=== PATIENT | male | born 1935 | race Caucasian/White ===

== ENCOUNTER 2018-01-07 11:42 | Observation (INO) ==
[2018-01-07 12:12] LABS: Basophils # 0.1 K/mcL (0.0-0.2); Basophils % 0.6 %; Eosinophils # 0.5 K/mcL (0.0-0.6); Eosinophils % 6.4 %; Hematocrit 39.9 % (37.5-50.1); Immature Granulocytes % 0.4 % (0-4); Lymphocytes # 2.3 K/mcL (0.6-4.6); Lymphocytes % 29.6 %; Mean Corpuscular HGB Conc 35.1 g/dL (31.6-35.5); Mean Corpuscular Hemoglobin 31.3 pg (28.0-33.3); Mean Corpuscular Volume 89.3 fL (83.0-100.0); Mean Platelet Volume 10.5 fL (9.4-12.4); Monocytes # 0.6 K/mcL (0.0-1.3); Monocytes % 8.3 %; Neutrophils # 4.2 K/mcL (1.6-8.9); Platelet Count 177 K/mcL (140-400); Red Blood Count 4.47 M/mcL (4.19-5.50); Red Cell Distribution Width 12.9 % (11.5-14.5); Segmented Neutrophils % 54.7 %
[2018-01-07 12:39] LABS: Troponin I < 0.03 ng/mL (< 0.04)
[2018-01-07 12:40] LABS: BUN/Creatinine Ratio 14 (6-26); Blood Urea Nitrogen 13 mg/dL (8-23); Calcium 8.9 mg/dL (8.6-10.3); Carbon Dioxide 24 mEq/L (23-29); Chloride 106 mEq/L (98-107); Glucose 185 mg/dL (70-105); Osmolality,Calculated 293 (280-300); Potassium 3.9 mEq/L (3.5-5.1); Sodium 139 mEq/L (136-145); eGFR For African Americans > 60 (> 60); eGFR For Non-African Americans > 60 (> 60)
[2018-01-07] MEDS ORDERED: Aspirin 325 MG TABLET PO ONE (13:31)
[2018-01-07] MEDS ORDERED: Nitroglycerin 0.4 MG TAB.SUBL SL PRN (13:37)
--- NOTE | 2018-01-07 13:42 | Emergency Department Note ---
Disposition Clinical Impression: Chest pain Qualifiers: Chest pain type: unspecified Qualified Code(s): R07.9 - Chest pain, unspecified Disposition: Admitted As Inpatient Condition: Good Referrals: Humberto Penn Jr, MD [Primary Care Provider] - Forms: ED Satisfaction Letter Time of Disposition: 13:43 General Adult HPI - General Chief complaint: ED Chest Pain Stated complaint: CP X2 Days Time Seen by Provider: 01/07/18 12:53 Source: patient Limitations: no limitations Nursing Notes Reviewed: Yes Vital Signs Reviewed: Yes - History of Present Illness HPI Narrative: 82 year old male presntes to the Ed with complanits of chest pain that is left sided without radiatoin and is associated iwth exertional dyspnea. PAtient has multiple risk factors for ACS including HTn, hyperlipidemia, diabetes, and family history. He does not smoke. PAtinet states that it was worse last night and today it is a 4 but persistant. PAtinet denies fevers, cough, cold, congestion, nausea, or vomiting. PAtinet dnenies history of hemopytosos or DVT/ PE. PAtinet denies preivous cardiac evlaaution. Patiet described the pain as pressure and sharp, not reproducible Pain Scale: 8 - Related Data Home Medications Medication Instructions Recorded Confirmed Amlodipine Besylate 5 mg PO DAILY 01/05/18 01/07/18 Aspirin [Lo-Dose Aspirin EC] 81 mg PO DAILY 01/05/18 01/07/18 Doxepin [Sinequan] 25 mg PO BID 01/05/18 01/07/18 Furosemide [Lasix] 20 mg PO Q3-4D PRN 01/05/18 01/07/18 LORazepam [Ativan] 1 mg PO BID 01/05/18 01/07/18 Meclizine HCl [Bonine] 25 mg PO TID PRN 01/05/18 01/07/18 Metoprolol [Lopressor] 25 mg PO BID 01/05/18 01/07/18 Nortriptyline [Pamelor] 25 mg PO DAILY 01/05/18 01/07/18 Ondansetron [Zofran ODT] 8 mg SL ONCE 01/05/18 01/07/18 Pantoprazole Sodium [Protonix] 40 mg PO DAILY 01/05/18 01/07/18 Simvastatin [Zocor] 20 mg PO HS 01/05/18 01/07/18 Tamsulosin HCl [Flomax] 0.4 mg PO DAILY 01/05/18 01/07/18 Allergies Allergy/AdvReac Type Severity Reaction Status Date / Time acetaminophen [From Tylenol] Allergy Difficulty Verified 01/07/18 11:48 Breathing cephalexin Allergy Rash Verified 01/07/18 11:48 iodine Allergy Rash Verified 01/07/18 11:48 lisinopril Allergy Rash Verified 01/07/18 11:48 Penicillins Allergy Rash Verified 01/07/18 11:48 amitriptyline [From Elavil] AdvReac Numbness Verified 01/07/18 11:48 Constitutional: Denies: fever, chills, weakness, weight change Eyes: Denies: eye pain, eye discharge, vision change ENT ED: Denies: ear pain, throat pain, dental pain, hearing loss, epistaxis, congestion, dysphagia Cardiovascular: Reports: chest pain, dyspnea on exertion. Denies: palpitations , edema, syncope Respiratory: Denies: cough, dyspnea, wheezes, hemoptysis, stridor Gastrointestinal: Denies: abdominal pain, nausea, vomiting, diarrhea, constipation, hematemesis, melena, hematochezia Genitourinary: Denies: urgency, dysuria, frequency, hematuria Musculoskeletal: Denies: back pain, neck pain, arthralgia, myalgia Integumentary: Denies: rash, abrasion, lesions Neurological: Denies: headache, weakness, numbness, paresthesias, confusion, abnormal gait, vertigo Psychiatric: Denies: anxiety, depression, suicidal thoughts, homicidal thoughts , auditory hallucinations, visual hallucinations Endocrine: Denies: fatigue Hematological/Lymphatic: Denies: easy bleeding, easy bruising Allergic/Immunologic: Denies: facial swelling, urticaria Past Medical History - Past Medical History Medical history: Reports: hyperlipidemia, hypertension, other Surgical history: Reports: cholecystectomy, orthopedic, other (Left elbow, right ankle) Psychiatric history: Reports: anxiety - Social History Smoking Status: Never smoker Smokeless Tobacco Status: No Alcohol use: Reports: none Drug use: Reports: none Physical Exam - General Limitations: no limitations General appearance: alert, in no apparent distress - Head Head exam: atraumatic, normocephalic, normal inspection - Eye Eye exam: Present: normal appearance, PERRL, EOMI - Expanded Eye Exam Pupils: Left: reactive - ENT ENT exam: normal exam, normal oropharynx, mucous membranes moist - Expanded ENT Exam External ear exam: Present: normal external inspection Mouth exam: Present: normal external inspection Teeth exam: Present: normal inspection Throat exam: Present: normal inspection - Neck Neck exam: Present: normal inspection, full ROM, trachea midline - Chest Chest inspection: Present: normal inspection, symmetric chest wall rise - Respiratory Respiratory exam: Present: normal lung sounds bilaterally - Cardiovascular Cardiovascular exam: Present: regular rate, normal rhythm, normal heart sounds - Abdominal Exam Abdominal exam: Present: soft, Non-Tender. Absent: tenderness, distention, guarding, rebound, rigidity - Extremities Exam Extremities exam: Present: normal inspection, full ROM. Absent: tenderness, pedal edema - Expanded Upper Extremity Exam Shoulder exam: Present: normal inspection, full ROM Arm exam: Present: normal inspection, full ROM Elbow exam: Present: normal inspection, full ROM Forearm/Wrist exam: Present: normal inspection, full ROM Hand exam: Present: normal inspection, full ROM Vascular exam: Normal: capillary refill, radial pulse - Expanded Lower Extremity Exam Hip/Pelvis exam: Present: normal inspection, full ROM Upper leg exam: Present: normal inspection, full ROM Knee exam: Present: normal inspection, full ROM Lower leg exam: Present: normal inspection, full ROM Ankle exam: Present: normal inspection, full ROM Foot/toe exam: Present: normal inspection, full ROM Neurovascular/Tendon exam: Absent: motor deficit, sensory deficit, tendon deficit - Back Exam Back exam: Present: normal inspection, full ROM. Absent: tenderness - Neurological Exam Neurological exam: Present: alert, oriented X3 - Expanded Neurological Exam Patient oriented to: Present: person, place, time Coma Scale Eye Opening: Spontaneous Coma Scale Motor Response: Obeys Commands Coma Scale Verbal Response: Oriented Coma Scale Total: 15 - Psychiatric Psychiatric exam: Present: normal affect, normal mood - Skin Skin exam: Present: warm, dry, intact, normal color Course Course Narrative: we will do cardiopulmonary workup, treat with ASA and nitro and then admit to medicine. troponin is negative, and there are no new ischemic changes on ekg. patiet is agreeable to admission. - Reevaluation(s) Reevaluation #1: updated patinet and he is agreeable to plan. Time: 14:23 - Consultations Consultation #1: discussed case with Dr. Webster and she accepts patient for admission Time: 14:23 Vital Signs Temperature 98.3 F 01/07/18 11:43 Pulse Rate 78 01/07/18 11:43 Respiratory Rate 18 01/07/18 11:43 Blood Pressure 160/84 01/07/18 11:43 O2 Sat by Pulse Oximetry 96 01/07/18 11:43 Temperature 98.3 F 01/07/18 11:43 Pulse Rate 67 01/07/18 13:45 Respiratory Rate 20 01/07/18 13:45 Blood Pressure 152/85 01/07/18 13:45 O2 Sat by Pulse Oximetry 98 01/07/18 13:45 Oxygen Delivery Oxygen Delivery Room Air Medical Decision Making - Medical Records Medical records reviewed: Yes I reviewed the patient's medical records. - Lab Data Lab results reviewed: Yes I reviewed the patient's lab results. Result diagrams: 01/07/18 11:59 01/07/18 11:59 Lab Results 01/07/18 01/07/18 Range/Units 11:59 11:59 WBC 7.7 (4.3-11.1) K/mcL RBC 4.47 (4.19-5.50) M/mcL Hgb 14.0 (12.9-16.9) g/dL Hct 39.9 (37.5-50.1) % MCV 89.3 (83.0-100.0) fL MCH 31.3 (28.0-33.3) pg MCHC 35.1 (31.6-35.5) g/dL RDW 12.9 (11.5-14.5) % Plt Count 177 (140-400) K/mcL MPV 10.5 (9.4-12.4) fL Immature Gran % 0.4 (0-4) % Seg Neutrophils % 54.7 % Lymphocytes % 29.6 % Monocytes % 8.3 % Eosinophils % 6.4 % Basophils % 0.6 % Neutrophils # 4.2 (1.6-8.9) K/mcL Lymphocytes # 2.3 (0.6-4.6) K/mcL Monocytes # 0.6 (0.0-1.3) K/mcL Eosinophils # 0.5 (0.0-0.6) K/mcL Basophils # 0.1 (0.0-0.2) K/mcL Sodium 139 (136-145) mEq/L Potassium 3.9 (3.5-5.1) mEq/L Chloride 106 (98-107) mEq/L Carbon Dioxide 24 (23-29) mEq/L BUN 13 (8-23) mg/dL Creatinine 0.90 (0.70-1.30) mg/dL Est GFR ( Amer) > 60 (> 60) Est GFR (Non-Af Amer) > 60 (> 60) BUN/Creatinine Ratio 14 (6-26) Glucose 185 H (70-105) mg/dL Calculated Osmolality 293 (280-300) Calcium 8.9 (8.6-10.3) mg/dL Troponin I < 0.03 (< 0.04) ng/mL - Radiology Data Radiology results reviewed: Yes I reviewed the patient's radiology results. - EKG Data EKG #1 EKG attestation: Yes I reviewed and interpreted this EKG. EKG results narrative: NSR with rate of 66. NO STEMI. normal intervla.s no change from 05/27/17. 1151
--- NOTE | 2018-01-07 14:57 | Electrocardiograph Report ---
[facility] Test Date: 2018-01-07 Pat Name: Luke Crockett Department: 104 Room: Gender: M [employer]: : 1935 Requested By: [id number] Order Number: [id number] Reading MD: Humberto Penn Measurements Intervals [place] Rate: 66 P: 35 UT: 136 QRS: 35 QRSD: 97 T: 33 QT: 357 QTc: 371 Interpretive Statements SINUS RHYTHM wnl Electronically Signed On 01-07-2018 14:56:03 EDT by Humberto Penn
[2018-01-07] MEDS ORDERED: Furosemide 20 MG TABLET PO PRN (17:17)
[2018-01-07] MEDS ORDERED: Ondansetron ODT 4 MG TAB.RAPDIS SL SCH (17:30)
[2018-01-07] MEDS: *HR* LORazepam 1 MG TABLET PO SCH (20:29)
--- NOTE | 2018-01-07 22:25 | Internal Med History&Physical ---
Date of Encounter: 01/07/18 Time of Encounter: 22:25 Internal Medicine - H&P: HPI Chief complaint: CP History of present illness: Mr. Crockett is 82 year old male with PMH of HTN, hyperlipidemia and family history of CAD who presntes to the Ed with complanits of persistent sharp chest pain that is left sided without radiatoin and is associated with exertional dyspnea. patient denies fevers, cough, cold, congestion, nausea, or vomiting. Patient denies previous cardiac evaluation. Patient described the pain as pressure and sharp, not reproducible, He was evaluated by ER staff and his troponin and ECG was with no abnormalities, he was admitted for further evaluation. Past Med Surg Social Fam HX - Past Medical History Medical history: hyperlipidemia, hypertension, other Additional medical history: tachycardia Psychiatric history: anxiety - Past Surgical History Surgical History: cholecystectomy, orthopedic, other - Social History Smoking Status: Never smoker Smokeless Tobacco Status: No Alcohol use: none Drug use: none Internal Medicine - H&P: Meds Amlodipine Besylate 5 mg PO DAILY 01/05/18 [History] Aspirin [Lo-Dose Aspirin EC] 81 mg PO DAILY 01/05/18 [History] Doxepin [Sinequan] 25 mg PO BID 01/05/18 [History] Furosemide [Lasix] 20 mg PO Q3-4D PRN 01/05/18 [History] LORazepam [Ativan] 1 mg PO BID 01/05/18 [History] Meclizine HCl [Bonine] 25 mg PO TID PRN 01/05/18 [History] Metoprolol [Lopressor] 25 mg PO BID 01/05/18 [History] Nortriptyline [Pamelor] 25 mg PO DAILY 01/05/18 [History] Ondansetron [Zofran ODT] 8 mg SL ONCE 01/05/18 [History] Pantoprazole Sodium [Protonix] 40 mg PO DAILY 01/05/18 [History] Simvastatin [Zocor] 20 mg PO HS 01/05/18 [History] Tamsulosin HCl [Flomax] 0.4 mg PO DAILY 01/05/18 [History] 3 Allergy/AdvReac Type Severity Reaction Status Date / Time acetaminophen [From Tylenol] Allergy Difficulty Verified 01/07/18 11:48 Breathing cephalexin Allergy Rash Verified 01/07/18 11:48 iodine Allergy Rash Verified 01/07/18 11:48 lisinopril Allergy Rash Verified 01/07/18 11:48 Penicillins Allergy Rash Verified 01/07/18 11:48 amitriptyline [From Elavil] AdvReac Numbness Verified 01/07/18 11:48 All Systems PM: A 10-system review of systems was performed and is negative for pertinent findings except as documented above in the HPI. - Constitutional Constitutional: no chills, no fever(s), no night sweats - Cardiovascular Cardiovascular ROS IM: chest pain, dyspnea on exertion, no diaphoresis, no dyspnea, no lightheadedness, no palpitations, no syncope - Respiratory Respiratory: no cough, no dyspnea, no wheezing, no excessive phlegm production - Gastrointestinal Gastrointestinal: diarrhea, no abdominal pain, no hematemesis, no hematochezia, no melena, no nausea, no vomiting - Neurological Neurological ROS: no confusion, no convulsions, no focal weakness, no numbness, no tingling, no tremor(s) - Constitutional Vitals: Temp Pulse Resp BP Pulse Ox 98.0 F 62 15 143/71 94 01/07/18 18:41 01/07/18 18:41 01/07/18 18:41 01/07/18 18:41 01/07/18 18:41 General appearance: Present: A&O X 3 - Head Head exam: Present: atraumatic, normocephalic - Neck Neck exam general surgery: Present: supple, trachea midline. Absent: lymphadenopathy - Respiratory Respiratory exam: Present: CTAB. Absent: accessory muscle use, rales, rhonchi, wheezes - Cardiovascular Cardiovascular exam: Present: RRR, +S1, +S2. Absent: diastolic murmur, gallop, rubs, systolic murmur - Neurological Exam Neurological exam: Present: CN II-XII intact, oriented X3, no focal deficits. Absent: pronater drift, facial droop, speech deficit Internal Med - H&P Results - Labs CBC & Chem 7: 01/07/18 11:59 01/07/18 11:59 - Assessment and plan (1) Chest pain Current Visit: Yes Status: Acute Assessment and plan: ASSESSMENT: - Chest pain DD *CAD *Muskuloskeletal CP - myofascial strain, costochondritis *GERD *Esophageal spasm PLAN: - cardiac enzymes x 2 q 8 hr - EKG now and in AM - ASA - O2 by NC to keep SpO2 greater than 92% - UA - Urine toxic screen - CBCD, BMP in AM - Fasting lipids - Tylenol 650 mg PO q 4-6 hr PRN headache - Home meds (check list) - Heparin 5000 U SQ BID - 2D Echo - Cardiology consult Qualifiers: Chest pain type: unspecified Qualified Code(s): R07.9 - Chest pain, unspecified (2) Hypertension Current Visit: Yes Status: Acute Assessment and plan: We will cont home meds Qualifiers: Qualified Code(s): I10 - Essential (primary) hypertension (3) DVT prophylaxis Current Visit: Yes Status: Acute Assessment and plan: Heparin 5000 BID - Time Spent With Patient Total time spent is greater than 50% in coordination of care (as documented) at patient's floor/unit and/or counseling patient:
[2018-01-07] MEDS ORDERED: Naloxone 0.4 MG/ML INJ IVP PRN (22:26)
[2018-01-08] MEDS: *HR* LORazepam 1 MG TABLET PO SCH (08:04)
[2018-01-08] MEDS ORDERED: Naloxone 0.4 MG/ML INJ IVP PRN (08:19)
[2018-01-08] MEDS ORDERED: Aspirin Enteric Coated 81 MG Tablet PO SCH (09:00)
[2018-01-08] MEDS ORDERED: amLODIPine 5 MG TABLET PO SCH (09:00)
[2018-01-08 09:24] LABS: Eosinophils % 5.7 %; Hematocrit 39.4 % (37.5-50.1); Hemoglobin 14.2 g/dL (12.9-16.9); Immature Granulocytes % 0.4 % (0-4); Lymphocytes % 36.4 %; Mean Corpuscular Hemoglobin 31.7 pg (28.0-33.3); Mean Corpuscular Volume 87.9 fL (83.0-100.0); Mean Platelet Volume 10.7 fL (9.4-12.4); Monocytes % 7.5 %; Platelet Count 176 K/mcL (140-400); Red Blood Count 4.48 M/mcL (4.19-5.50); Red Cell Distribution Width 12.7 % (11.5-14.5); Segmented Neutrophils % 49.6 %
[2018-01-08 09:25] LABS: Basophils % 0.4 %; Eosinophils # 0.4 K/mcL (0.0-0.6); Lymphocytes # 2.7 K/mcL (0.6-4.6); Monocytes # 0.6 K/mcL (0.0-1.3); Neutrophils # 3.7 K/mcL (1.6-8.9)
[2018-01-08 09:38] LABS: INR 1.1; Prothrombin Time 12.2 Seconds (9.4-12.1)
[2018-01-08 09:40] LABS: Activated Partial Thrombo Time 31.7 Seconds (26.0-36.0)
[2018-01-08 09:48] LABS: Alanine Aminotransferase 19 Units/L (7-52); Albumin 3.8 g/dL (3.5-5.7); Albumin/Globulin Ratio 1.4 (1.1-2.2); Alkaline Phosphatase 82 Units/L (34-104); Aspartate Amino Transferase 21 Units/L (13-39); BUN/Creatinine Ratio 15 (6-26); Bilirubin,Total 0.7 mg/dL (0.3-1.0); Blood Urea Nitrogen 13 mg/dL (8-23); Calcium 9.1 mg/dL (8.6-10.3); Carbon Dioxide 28 mEq/L (23-29); Chloride 106 mEq/L (98-107); Globulin 2.7 g/dL (2.4-3.5); Glucose 179 mg/dL (70-105); Osmolality,Calculated 293 (280-300); Phosphorous 2.5 mg/dL (2.7-4.5); Sodium 139 mEq/L (136-145); Total Protein 6.5 g/dL (6.4-8.9); eGFR For African Americans > 60 (> 60); eGFR For Non-African Americans > 60 (> 60)
[2018-01-08 11:50] VITALS: BP 129/61
--- NOTE | 2018-01-08 11:59 | Cardiology Consult Note ---
<Shy Mcallister - Last Filed: 01/08/18 12:55> Date of Encounter: 01/08/18 Time of Encounter: 11:45 Assessment and Plan (1) Chest pain Status: Resolved Atypical chest pain. Troponin negative x3. No ECG changes presents. Suspect symptoms may be musculoskeletal in etiology. Recent negative nuclear stress test in 2016. No further cardiac testing warranted as inpatient. Risk factor modification emphasized. Will coordinate outpatient follow-up in 4-6 weeks to re-evaluate symptoms. Qualifiers: Chest pain type: precordial pain Qualified Code(s): R07.2 - Precordial pain (2) Aortic stenosis Status: Acute Known hx of mild-moderate , EF preserved. Continue to monitor in the outpatient setting. Qualifiers: Cardiac valve disease etiology: nonrheumatic Qualified Code(s): I35.0 - Nonrheumatic aortic (valve) stenosis Discussion w patient/family: The assessment and plan as outlined above was discussed with the patient and/or family members who expressed understanding and agreement. All questions were answered. Thank you for involving us in the care of your patient. Please call with any questions. The patient will be discussed and reviewed with Dr. Ordonez; changes to be made accordingly. History of Present Illness Consult date: 01/08/18 Requesting physician: Melvi Webster Consult reason: Chest pain Chief complaint: chest pain History of present illness: Mr. Crockett is a 82 year old male with PMHx significant of HTN and HLD who presented to the ED with complaints of sharp chest pain that started yesterday. Discomfort was non-radiating and occurred at rest. Reports pain somewhat improved when he walked around, worsened when he laid down in bed. Reports pain lasted all day and night which prompted ED evaluation. Hx of negative nuclear stress test in 2016. Troponin negative. No ischemic ECG changes present. Past Med Surg Social Fam HX - Past Medical History Attestation: Yes The following information was validated with the patient. Source: patient Medical history: hyperlipidemia, hypertension, other Additional medical history: tachycardia Psychiatric history: anxiety - Past Surgical History Surgical History: cholecystectomy, orthopedic, other - Social History Smoking Status: Never smoker Smokeless Tobacco Status: No Alcohol use: none Drug use: none Medications and Allergies Amlodipine Besylate 5 mg PO DAILY 01/05/18 [History] Aspirin [Lo-Dose Aspirin EC] 81 mg PO DAILY 01/05/18 [History] Doxepin [Sinequan] 25 mg PO BID 01/05/18 [History] Furosemide [Lasix] 20 mg PO Q3-4D PRN 01/05/18 [History] LORazepam [Ativan] 1 mg PO BID 01/05/18 [History] Meclizine HCl [Bonine] 25 mg PO TID PRN 01/05/18 [History] Metoprolol [Lopressor] 25 mg PO BID 01/05/18 [History] Nortriptyline [Pamelor] 25 mg PO DAILY 01/05/18 [History] Ondansetron [Zofran ODT] 8 mg SL ONCE 01/05/18 [History] Pantoprazole Sodium [Protonix] 40 mg PO DAILY 01/05/18 [History] Simvastatin [Zocor] 20 mg PO HS 01/05/18 [History] Tamsulosin HCl [Flomax] 0.4 mg PO DAILY 01/05/18 [History] 3 Allergy/AdvReac Type Severity Reaction Status Date / Time acetaminophen [From Tylenol] Allergy Difficulty Verified 01/07/18 11:48 Breathing cephalexin Allergy Rash Verified 01/07/18 11:48 iodine Allergy Rash Verified 01/07/18 11:48 lisinopril Allergy Rash Verified 01/07/18 11:48 Penicillins Allergy Rash Verified 01/07/18 11:48 amitriptyline [From Elavil] AdvReac Numbness Verified 01/07/18 11:48 All Systems Review: The remainder of the systems were reviewed and are negative - Cardiovascular Cardiovascular: as per HPI Physical Examination Vital Signs, Last 4 Hours Temp Pulse Resp BP Pulse Ox 01/08/18 11:48 98.2 F 63 17 129/61 95 01/08/18 09:18 98.0 F 66 18 109/67 96 General: Conversant, No Apparent Distress HEENT: Atraumatic, Normocephaly, Mucus Membranes Moist Neck: No JVD, Normal carotid pulses Cardiac: Reg Rate and Rhythm, Normal S1 and S2, Other (systolic 2/6 murmur) Lungs: Normal Breath Sounds, No Wheeze, Rales, Rhonchi Neuro: Alert and responsive, No focal deficits noted Abdomen: Soft, Non-Tender Skin: No rashes noted on visualized skin Musculoskeletal: No Chest Wall Tenderness Extremities: No Clubbing, No Cyanosis, No Edema, Normal Pulses Results 01/08/18 08:46 01/08/18 08:46 Lab Results 01/07/18 01/08/18 01/08/18 22:44 04:57 08:46 WBC Hgb Hct Plt Count INR APTT Sodium Potassium Chloride Carbon Dioxide BUN Creatinine Glucose Calcium Magnesium Total Bilirubin AST ALT Alkaline Phosphatase Troponin I < 0.03 < 0.03 < 0.03 01/08/18 01/08/18 01/08/18 08:46 08:46 08:46 WBC 7.4 Hgb 14.2 Hct 39.4 Plt Count 176 INR 1.1 APTT 31.7 Sodium 139 Potassium 4.0 Chloride 106 Carbon Dioxide 28 BUN 13 Creatinine 0.85 Glucose 179 H Calcium 9.1 Magnesium 2.0 Total Bilirubin 0.7 AST 21 ALT 19 Alkaline Phosphatase 82 Troponin I Active Medications Amlodipine Besylate (Norvasc) 5 mg PO DAILY [facility] Stop: 07/10/18 09:01 Last Admin: 01/08/18 08:05 Dose: 5 mg Aspirin (Aspirin Ec) 81 mg PO DAILY [facility] Stop: 07/10/18 09:01 Last Admin: 01/08/18 08:05 Dose: 81 mg Doxepin HCl (Sinequan) 25 mg PO BID [facility] Stop: 07/09/18 21:01 Last Admin: 01/08/18 08:05 Dose: 25 mg Furosemide (Lasix) 20 mg PO Q3D PRN PRN Reason: FLUID Stop: 07/09/18 17:18 Heparin Sodium (Porcine) (Heparin) 5,000 unit SQ Q12HCO [facility] Stop: 07/10/18 18:01 Lorazepam (Ativan) 1 mg PO BID [facility] Stop: 07/09/18 21:01 Last Admin: 01/08/18 08:04 Dose: 1 mg Meclizine HCl (Antivert) 25 mg PO TID PRN PRN Reason: DIZZINESS Metoprolol Tartrate (Lopressor) 25 mg PO BID [facility] Stop: 07/09/18 21:01 Last Admin: 01/08/18 08:04 Dose: 25 mg Naloxone HCl (Narcan) 0.4 mg IVP Q2MIN PRN PRN Reason: SEE COMMENTS Stop: 07/10/18 08:20 Nitroglycerin (Nitroglycerin) 0.4 mg SL Q5MIN PRN PRN Reason: Chest Pain Stop: 07/09/18 13:38 Nortriptyline HCl (Pamelor) 25 mg PO DAILY [facility] Stop: 07/10/18 09:01 Last Admin: 01/08/18 08:05 Dose: 25 mg Omeprazole (Prilosec) 20 mg PO DAILY [facility] Stop: 07/10/18 09:01 Last Admin: 01/08/18 08:05 Dose: 20 mg Ondansetron HCl (Zofran Odt) 8 mg SL ONCE [facility] Stop: 07/09/18 17:31 Last Admin: 01/07/18 18:00 Dose: Not Given Simvastatin (Zocor) 20 mg PO HS [facility] PRN Reason: Protocol Stop: 07/09/18 21:01 Last Admin: 01/07/18 20:29 Dose: 20 mg Tamsulosin HCl (Flomax) 0.4 mg PO DAILY [facility] PRN Reason: Protocol Stop: 07/10/18 09:01 Last Admin: 01/08/18 08:05 Dose: 0.4 mg - Imaging and Cardiology Stress Test: report reviewed Echo: report reviewed - EKG Interpretation EKG results cardiology: personally reviewed Consult Discharge Plan - Plan Instructions: Chest Pain (DC), Aortic Stenosis (DC), Dyspnea (GEN) Referrals: Humberto Penn Jr, MD [Primary Care Provider] - 01/13/18 3:00 pm () <Kassidy Ordonez - Last Filed: 01/08/18 16:00> Date of Encounter: 01/08/18 - Attending Attestation I have personally performed a face to face evaluation on this patient. I have reviewed and agree with the care plan. History and Exam by me shows: Atypical chest pain Negative stress test 06/16 Titrate meds Consider LHC if recurrent chest pain Assessment and Plan Discussion w patient/family: The assessment and plan as outlined above was discussed with the patient and/or family members who expressed understanding and agreement. All questions were answered. Thank you for involving us in the care of your patient. Please call with any questions. History of Present Illness History of present illness: Mr. Crockett is a 82 year old male All Systems Review: The remainder of the systems were reviewed and are negative Results 01/08/18 08:46 01/08/18 08:46 Lab Results 01/07/18 01/08/18 01/08/18 22:44 04:57 08:46 WBC Hgb Hct Plt Count INR APTT Sodium Potassium Chloride Carbon Dioxide BUN Creatinine Glucose Calcium Magnesium Total Bilirubin AST ALT Alkaline Phosphatase Troponin I < 0.03 < 0.03 < 0.03 01/08/18 01/08/18 01/08/18 08:46 08:46 08:46 WBC 7.4 Hgb 14.2 Hct 39.4 Plt Count 176 INR 1.1 APTT 31.7 Sodium 139 Potassium 4.0 Chloride 106 Carbon Dioxide 28 BUN 13 Creatinine 0.85 Glucose 179 H Calcium 9.1 Magnesium 2.0 Total Bilirubin 0.7 AST 21 ALT 19 Alkaline Phosphatase 82 Troponin I
--- NOTE | 2018-01-08 12:21 | Discharge Summary ---
Date of Encounter: 01/08/18 Time of Encounter: 12:16 - Discharge Diagnosis (1) Chest pain Priority: Primary Status: Resolved Qualifiers: Chest pain type: unspecified Qualified Code(s): R07.9 - Chest pain, unspecified (2) Hypertension Priority: Primary Status: Acute Qualifiers: Qualified Code(s): I10 - Essential (primary) hypertension (3) Aortic stenosis Priority: Primary Status: Acute Qualifiers: Cardiac valve disease etiology: nonrheumatic Qualified Code(s): I35.0 - Nonrheumatic aortic (valve) stenosis Hospital course: Mr. Crockett is a 82 year old male with H hypertension presented to [facility] on 01/07/2018 with complaints of chest pain with associated shortness of breath for 2 days prior to arrival. He is placed in observation status for further workup and treatment. Patient's workup included negative serial troponin, EKG without acute ST changes. CXR unremarkable. Chart review revealed 05/2017 TTE with EF 60%, mild diastolic dysfunction and no wall motion abnormalities. Of note patient does have mild to moderate aortic stenosis. 05/2017 stress test perfusion imaging was negative for ischemia or infarct. Chest pain resolved spontaneously without intervention. He was evaluated by cardiology who felt chest pain was atypical and did not recommend further cardiac testing at this time. Patient was offered CTA chest to assess for pulmonary embolism and or aortic dissection however he does have low probability of either. Patient declined further testing at this time. Stated he felt better and would like to be discharged home with outpatient follow-up. Patient advised to return to ER if chest pain and/or SOB recurs; patient and both verbalize understanding. He had no complaints at time of discharge. Discharge discussed with: patient (Seen and examined at bedside. Patient is new to me, information obtained from chart review patient report. Patient says he feels back to baseline would like to be discharge home today. No chest pain or shortness of breath. Discussed with him the possibility of obtaining a chest CTA to assess for pulmonary embolism and/or aortic dissection and patient declined at this time.) - Time Spent with Patient Total time spent providing and/or coordinating discharge services: - Discharge Medications Home Medications: Amlodipine Besylate 5 mg PO DAILY 01/05/18 [History] Aspirin [Lo-Dose Aspirin EC] 81 mg PO DAILY 01/05/18 [History] Doxepin [Sinequan] 25 mg PO BID 01/05/18 [History] Furosemide [Lasix] 20 mg PO Q3-4D PRN 01/05/18 [History] LORazepam [Ativan] 1 mg PO BID 01/05/18 [History] Meclizine HCl [Bonine] 25 mg PO TID PRN 01/05/18 [History] Metoprolol [Lopressor] 25 mg PO BID 01/05/18 [History] Nortriptyline [Pamelor] 25 mg PO DAILY 01/05/18 [History] Ondansetron [Zofran ODT] 8 mg SL ONCE 01/05/18 [History] Pantoprazole Sodium [Protonix] 40 mg PO DAILY 01/05/18 [History] Simvastatin [Zocor] 20 mg PO HS 01/05/18 [History] Tamsulosin HCl [Flomax] 0.4 mg PO DAILY 01/05/18 [History] Allergies/Adverse Reactions: 3 Allergy/AdvReac Type Severity Reaction Status Date / Time acetaminophen [From Tylenol] Allergy Difficulty Verified 01/07/18 11:48 Breathing cephalexin Allergy Rash Verified 01/07/18 11:48 iodine Allergy Rash Verified 01/07/18 11:48 lisinopril Allergy Rash Verified 01/07/18 11:48 Penicillins Allergy Rash Verified 01/07/18 11:48 amitriptyline [From Elavil] AdvReac Numbness Verified 01/07/18 11:48 Date of admission: 01/07/18 15:34 Primary care physician: Humberto Penn Jr, MD Consults: 01/07/18 22:26 Consult to Physician [CONS] Routine Consulting Provider: Gerardo Tavares Reason for Consult: cp Call Completed: Yes Discharging clinician: Stephanie Pena Anticipated date of discharge: 01/08/18 - Constitutional Vitals: Temp Pulse Resp BP Pulse Ox 98.2 F 63 17 129/61 95 01/08/18 11:48 01/08/18 11:48 01/08/18 11:48 01/08/18 11:48 01/08/18 11:48 General appearance: Present: A&O X 3 - Head Head exam: Present: atraumatic, normocephalic - Eye Eye exam: Present: PERRL, conjuntiva pink, sclera anicteric Pupils: Present: PERRL - Neck Neck exam general surgery: Present: supple, trachea midline. Absent: lymphadenopathy - Respiratory Respiratory exam: Present: CTAB. Absent: accessory muscle use, rales, rhonchi, wheezes - Cardiovascular Cardiovascular exam: Present: RRR, +S1, +S2, systolic murmur. Absent: diastolic murmur, gallop, rubs - GI/Abdominal GI/Abdominal exam: Present: normal bowel sounds, soft, no peritoneal signs. Absent: distended, tenderness - Extremities Exam Extremities exam: Present: warm, radial pulses palpable and symmetrical. Absent : calf tenderness, cyanotic, pedal edema - Neurological Exam Neurological exam: Present: CN II-XII intact, oriented X3, no focal deficits. Absent: pronater drift, facial droop, speech deficit - Skin Skin exam: Present: dry, intact - Patient Status Disposition: Home, Self-Care Condition: Good Functional capacity at discharge: independent ambulation Overall status at discharge: patient is back to baseline - Discharge Instructions Instructions: Chest Pain (DC), Dyspnea (GEN), Aortic Stenosis (DC) Follow Up With: Humberto Penn Jr, MD [Primary Care Provider] - (Please call for a follow-up appointment within 1 week) - Diet and Activity Activity: increase activity as tolerated Diet: low fat, low cholesterol, low salt diet
[2018-01-08] MEDS ORDERED: *HR* Heparin 5,000 UNIT/ML VIAL SQ SCH (18:00)
--- NOTE | 2018-01-09 07:01 | Electrocardiograph Report ---
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
== END 2018-01-08 15:22 | disposition home or self-care (01) ==
LOC: EMEROO 11:42 → 3BNU 11:42
PROVIDERS: ADMIT Internal Medicine Nephrology; ATTEND Internal Medicine Nephrology

== ENCOUNTER 2021-03-10 19:16 | Inpatient (IN) ==
[2021-03-10] MEDS ORDERED: Acetaminophen 325 MG TABLET PO ONE (23:42)
[2021-03-10] MEDS ORDERED: 0.9 % Sodium Chloride 1,000 ML IVC ONE (23:42)
[2021-03-11 00:56] LABS: Basophils % 0.2 %; Eosinophils % 0.3 %; Hematocrit 33.6 % (37.5-50.1); Hemoglobin 11.8 g/dL (12.9-16.9); Immature Granulocytes % 1.8 % (0-4); Lymphocytes # 1.6 K/mcL (0.6-4.6); Lymphocytes % 16.8 %; Mean Corpuscular HGB Conc 35.1 g/dL (31.6-35.5); Mean Corpuscular Hemoglobin 31.6 pg (28.0-33.3); Mean Corpuscular Volume 90.1 fL (83.0-100.0); Mean Platelet Volume 11.1 fL (9.4-12.4); Monocytes # 0.4 K/mcL (0.0-1.3); Monocytes % 4.1 %; Neutrophils # 7.2 K/mcL (1.6-8.9); Platelet Count 158 K/mcL (140-400); Red Blood Count 3.73 M/mcL (4.19-5.50); Red Cell Distribution Width 12.6 % (11.5-14.5); Segmented Neutrophils % 76.8 %; White Blood Count 9.4 K/mcL (4.3-11.1)
[2021-03-11 01:31] LABS: Adenovirus Not Detected (Not Detect); Coronavirus 229E Not Detected (Not Detect); Coronavirus HKU1 Not Detected (Not Detect); Coronavirus NL63 Not Detected (Not Detect); Coronavirus OC43 Not Detected (Not Detect)
[2021-03-11 01:31] LABS: Albumin 3.8 g/dL (3.5-5.7); Bilirubin,Total 0.6 mg/dL (0.3-1.0); Calcium 8.8 mg/dL (8.6-10.3); Potassium 3.6 mEq/L (3.5-5.1); Troponin I 0.12 ng/mL (< 0.04)
[2021-03-11 01:32] LABS: SARS-CoV-2 DETECTED (Not Detect)
[2021-03-11 01:33] LABS: Bordetella Pertussis Not Detected (Not Detect); Chlamydophila pneumoniae Not Detected (Not Detect); Human Metapneumovirus Not Detected (Not Detect); Human Rhinovirus/Enterovirus Not Detected (Not Detect); Influenza A Subtype 2009 H1 Not Detected (Not Detect); Influenza B Not Detected (Not Detect); Mycoplasma pneumoniae Not Detected (Not Detect); Parainfluenza Virus 1 Not Detected (Not Detect); Parainfluenza Virus 2 Not Detected (Not Detect); Parainfluenza Virus 3 Not Detected (Not Detect); Parainfluenza Virus 4 Not Detected (Not Detect); Respiratory Syncytial Virus Not Detected (Not Detect)
[2021-03-11 01:59] LABS: Albumin/Globulin Ratio 1.2 (1.1-2.2); Globulin 3.3 g/dL (2.4-3.5); Total Protein 7.1 g/dL (6.4-8.9)
[2021-03-11 02:13] LABS: Bacteria,Urine Few per hpf (None-Few); Bilirubin,Urine Negative (Negative); Blood,Urine Trace (Negative); Clarity,Urine Clear (Clear); Color,Urine Yellow (Yellow); Glucose,Urine (UA) Normal (Normal); Hyaline Casts,Urine Moderate per lpf (None Seen); Ketones,Urine Trace mg/dL (Negative); Leukocyte Esterase,Urine Negative (Negative); Mucus,Urine Few per lpf (None-Few); Nitrite,Urine Negative (Negative); PH,Urine 5.5 pH Units (5.0-8.0); Protein,Urine 100 mg/dL (Neg-Trace); RBC,Urine 0-3 per hpf (0-3); Specific Gravity,Urine 1.017 (1.010-1.025); Squamous Epithelial Cell,Urine Few per hpf (None-Few); Urobilinogen,Urine Normal (Normal)
[2021-03-11] MEDS ORDERED: Ondansetron 4 MG/2 ML VIAL IVP PRN (03:24)
[2021-03-11] MEDS ORDERED: Naloxone 0.4 MG/ML INJ IVP PRN (03:24)
[2021-03-11] MEDS ORDERED: Acetaminophen 325 MG TABLET PO PRN (03:24)
[2021-03-11] MEDS ORDERED: Perflutren Lipid Microsphere 1.3 ML in 0.9 % Sodium Chloride 8.7 ML IVP PRN (04:45)
[2021-03-11 07:18] LABS: INR 1.3; Prothrombin Time 14.7 Seconds (9.4-12.1)
[2021-03-11 07:28] LABS: BUN/Creatinine Ratio 17 (6-26); Blood Urea Nitrogen 23 mg/dL (8-23); Carbon Dioxide 25 mEq/L (23-29); Chloride 101 mEq/L (98-107); Glucose 169 mg/dL (70-105); Lactate Dehydrogenase 372 Units/L (140-271); Magnesium 2.2 mg/dL (1.6-2.6); Osmolality,Calculated 292 (280-300); Potassium 3.6 mEq/L (3.5-5.1); Sodium 137 mEq/L (136-145); eGFR For African Americans > 60 (> 60); eGFR For Non-African Americans 50 (> 60)
[2021-03-11 07:38] LABS: Ferritin 843 ng/mL (20-250)
[2021-03-11] MEDS ORDERED: Azithromycin 500 MG in 0.9 % Sodium Chloride 250 ML IVPB SCH (09:00)
[2021-03-11 09:27] LABS: C-Reactive Protein > 300 mg/L (Less than 10)
[2021-03-11 11:58] LABS: Basophils % 0.2 %; Hematocrit 33.5 % (37.5-50.1); Immature Granulocytes % 1.1 % (0-4); Lymphocytes # 0.5 K/mcL (0.6-4.6); Lymphocytes % 7.8 %; Mean Corpuscular HGB Conc 34.6 g/dL (31.6-35.5); Mean Corpuscular Hemoglobin 30.9 pg (28.0-33.3); Mean Corpuscular Volume 89.3 fL (83.0-100.0); Mean Platelet Volume 11.5 fL (9.4-12.4); Monocytes # 0.1 K/mcL (0.0-1.3); Monocytes % 1.3 %; Neutrophils # 5.7 K/mcL (1.6-8.9); Platelet Count 164 K/mcL (140-400); Red Blood Count 3.75 M/mcL (4.19-5.50); Red Cell Distribution Width 12.4 % (11.5-14.5); Segmented Neutrophils % 89.6 %; White Blood Count 6.4 K/mcL (4.3-11.1)
[2021-03-11 12:07] LABS: Hemoglobin 11.6 g/dL (12.9-16.9)
[2021-03-11 12:22] LABS: Estimated Average Glucose 146 mg/dl; Hemoglobin A1C 6.7 %
[2021-03-11] MEDS: Furosemide 20 MG/2 ML VIAL IVP SCH (12:57)
[2021-03-11] MEDS ORDERED: Dextrose Gel 15 GM/37.5 ML TUBE PO PRN ×2 (21:49)
[2021-03-11] MEDS ORDERED: *HR* Dextrose 50 % in Water (Vial) 50 ML VIAL IVP PRN (21:49)
[2021-03-11] MEDS ORDERED: D5% in Water 1,000 ML IVC PRN (21:49)
[2021-03-11] MEDS: Insulin LISPRO 300 UNITS/3 ML VIAL SUBQ SCH (22:27)
[2021-03-12 08:06] LABS: Hematocrit 34.8 % (37.5-50.1); Hemoglobin 12.1 g/dL (12.9-16.9); Mean Corpuscular HGB Conc 34.8 g/dL (31.6-35.5); Mean Corpuscular Hemoglobin 30.6 pg (28.0-33.3); Mean Corpuscular Volume 87.9 fL (83.0-100.0); Mean Platelet Volume 11.9 fL (9.4-12.4); Platelet Count 229 K/mcL (140-400); Red Blood Count 3.96 M/mcL (4.19-5.50); Red Cell Distribution Width 12.4 % (11.5-14.5)
[2021-03-12 08:08] LABS: White Blood Count 10.2 K/mcL (4.3-11.1)
[2021-03-12 08:23] LABS: BUN/Creatinine Ratio 21 (6-26); Blood Urea Nitrogen 25 mg/dL (8-23); Calcium 9.1 mg/dL (8.6-10.3); Carbon Dioxide 24 mEq/L (23-29); Chloride 100 mEq/L (98-107); Glucose 189 mg/dL (70-105); Osmolality,Calculated 289 (280-300); Potassium 3.5 mEq/L (3.5-5.1); Sodium 135 mEq/L (136-145); eGFR For African Americans > 60 (> 60); eGFR For Non-African Americans 60 (> 60)
[2021-03-12] MEDS: *HR* Enoxaparin 40 MG/0.4 ML SYRINGE SQ SCH (08:38)
[2021-03-12] MEDS: Furosemide 20 MG/2 ML VIAL IVP SCH (08:38)
[2021-03-12] MEDS: levoFLOXacin 750 MG/150 ML 750 MG/150 ML BAG IVPB SCH (08:38)
[2021-03-12] MEDS: Insulin LISPRO 300 UNITS/3 ML VIAL SUBQ SCH ×4 (08:46→21:24)
[2021-03-12] MEDS ORDERED: Haloperidol Lactate 5 MG/ML VIAL IVP PRN (10:38)
[2021-03-12] MEDS ORDERED: Haloperidol Lactate 5 MG/ML VIAL IM ONE (10:44)
[2021-03-13 03:52] LABS: Basophils % 0.2 %; Hematocrit 32.2 % (37.5-50.1); Hemoglobin 11.5 g/dL (12.9-16.9); Immature Granulocytes % 1.1 % (0-4); Lymphocytes # 1.3 K/mcL (0.6-4.6); Lymphocytes % 11.8 %; Mean Corpuscular HGB Conc 35.7 g/dL (31.6-35.5); Mean Corpuscular Hemoglobin 30.9 pg (28.0-33.3); Mean Corpuscular Volume 86.6 fL (83.0-100.0); Mean Platelet Volume 12.1 fL (9.4-12.4); Monocytes # 0.7 K/mcL (0.0-1.3); Monocytes % 6.7 %; Neutrophils # 8.7 K/mcL (1.6-8.9); Platelet Count 250 K/mcL (140-400); Red Blood Count 3.72 M/mcL (4.19-5.50); Red Cell Distribution Width 12.5 % (11.5-14.5); Segmented Neutrophils % 80.2 %; White Blood Count 10.9 K/mcL (4.3-11.1)
[2021-03-13 04:27] LABS: BUN/Creatinine Ratio 27 (6-26); Blood Urea Nitrogen 30 mg/dL (8-23); Calcium 9.3 mg/dL (8.6-10.3); Carbon Dioxide 23 mEq/L (23-29); Chloride 103 mEq/L (98-107); Glucose 148 mg/dL (70-105); Lactate Dehydrogenase 324 Units/L (140-271); Osmolality,Calculated 295 (280-300); Potassium 3.5 mEq/L (3.5-5.1); Sodium 138 mEq/L (136-145); eGFR For African Americans > 60 (> 60); eGFR For Non-African Americans > 60 (> 60)
[2021-03-13 04:30] LABS: Ferritin 724 ng/mL (20-250)
[2021-03-13] MEDS: *HR* Enoxaparin 40 MG/0.4 ML SYRINGE SQ SCH (05:41)
[2021-03-13] MEDS: Furosemide 20 MG/2 ML VIAL IVP SCH (08:43)
[2021-03-13] MEDS: Insulin LISPRO 300 UNITS/3 ML VIAL SUBQ SCH ×4 (08:44→20:27)
[2021-03-14 03:31] LABS: Basophils % 0.4 %; Hematocrit 34.2 % (37.5-50.1); Hemoglobin 12.4 g/dL (12.9-16.9); Immature Granulocytes % 1.4 % (0-4); Lymphocytes # 1.8 K/mcL (0.6-4.6); Lymphocytes % 15.9 %; Mean Corpuscular HGB Conc 36.3 g/dL (31.6-35.5); Mean Corpuscular Hemoglobin 31.5 pg (28.0-33.3); Mean Corpuscular Volume 86.8 fL (83.0-100.0); Mean Platelet Volume 11.5 fL (9.4-12.4); Monocytes # 1.2 K/mcL (0.0-1.3); Monocytes % 11.1 %; Neutrophils # 7.9 K/mcL (1.6-8.9); Platelet Count 311 K/mcL (140-400); Red Blood Count 3.94 M/mcL (4.19-5.50); Red Cell Distribution Width 12.6 % (11.5-14.5); Segmented Neutrophils % 71.2 %; White Blood Count 11.1 K/mcL (4.3-11.1)
[2021-03-14 03:51] LABS: Calcium 9.1 mg/dL (8.6-10.3); Potassium 3.2 mEq/L (3.5-5.1)
[2021-03-14] MEDS: *HR* Enoxaparin 40 MG/0.4 ML SYRINGE SQ SCH (05:51)
[2021-03-14] MEDS: Insulin LISPRO 300 UNITS/3 ML VIAL SUBQ SCH ×4 (07:31→20:51)
[2021-03-14] MEDS ORDERED: 0.9 % Sodium Chloride w KCl 40 MEQ/1,000 ML MLS IVC SCH (07:45)
[2021-03-14] MEDS: levoFLOXacin 750 MG/150 ML 750 MG/150 ML BAG IVPB SCH (10:58)
[2021-03-14] MEDS: Furosemide 20 MG/2 ML VIAL IVP SCH (11:02)
[2021-03-15 04:51] LABS: Basophils % 0.3 %; Eosinophils % 0.1 %; Hematocrit 32.4 % (37.5-50.1); Hemoglobin 11.1 g/dL (12.9-16.9); Immature Granulocytes % 1.9 % (0-4); Lymphocytes # 1.5 K/mcL (0.6-4.6); Lymphocytes % 16.1 %; Mean Corpuscular HGB Conc 34.3 g/dL (31.6-35.5); Mean Corpuscular Volume 87.6 fL (83.0-100.0); Mean Platelet Volume 11.3 fL (9.4-12.4); Monocytes # 0.9 K/mcL (0.0-1.3); Neutrophils # 6.8 K/mcL (1.6-8.9); Platelet Count 321 K/mcL (140-400); Red Cell Distribution Width 13.1 % (11.5-14.5); Segmented Neutrophils % 72.6 %; White Blood Count 9.4 K/mcL (4.3-11.1)
[2021-03-15 05:11] LABS: BUN/Creatinine Ratio 26 (6-26); Blood Urea Nitrogen 31 mg/dL (8-23); Calcium 8.4 mg/dL (8.6-10.3); Carbon Dioxide 22 mEq/L (23-29); Chloride 109 mEq/L (98-107); Glucose 151 mg/dL (70-105); Osmolality,Calculated 301 (280-300); Potassium 3.7 mEq/L (3.5-5.1); Sodium 141 mEq/L (136-145); eGFR For African Americans > 60 (> 60); eGFR For Non-African Americans 58 (> 60)
[2021-03-15] MEDS: *HR* Enoxaparin 40 MG/0.4 ML SYRINGE SQ SCH (05:17)
[2021-03-15] MEDS: Insulin LISPRO 300 UNITS/3 ML VIAL SUBQ SCH ×3 (07:27→17:02)
[2021-03-15 11:24] VITALS: BP 137/73; PULSE 74; TEMP 97.7; O2SAT 94
[2021-03-16] MEDS ORDERED: levoFLOXacin 750 MG TABLET PO SCH (09:00)
== END 2021-03-15 19:26 | disposition home or self-care (01) | DRG 177 ==
LOC: EMEROOARM 19:16 → 3NENU 19:16 → SUATTDRO 03-11 17:10
PROVIDERS: ADMIT Student in an Organized Health Care Education/Training Program; ATTEND Internal Medicine